=== PATIENT | male | born 1990 ===

== ENCOUNTER 2018-02-13 12:19 | Emergency (ER) | payer OTHER ==
[2018-02-13 12:26] VITALS: BMI 25.2
[2018-02-13 12:27] VITALS: BP 131/83; PULSE 66; RESP 20; TEMP 98; O2SAT 99
--- NOTE | 2018-02-13 12:42 | ED PDOC ---
Upper Extremity Pain/Injury Time Seen by Provider: 02/13/18 12:29 Chief Complaint (Nursing): Finger,Hand,&Wrist Chief Complaint (Provider): Left wrist pain History Per: Patient History/Exam Limitations: no limitations Onset/Duration Of Symptoms: Days (x1) Current Symptoms Are (Timing): Still Present Additional Complaint(s): 27 year old right handed male presents to the emergency department complaining of pain and swelling to left wrist and hand. 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 He did not sustain head injury or LOC as a result of fall. No meds taken for pain relief. Patient denies any numbness or tingling to affected area. PMD: none Past Medical History Reviewed: Historical Data, Nursing Documentation, Vital Signs Vital Signs: Last Vital Signs Temp 98 F 02/13/18 12:26 Pulse 66 02/13/18 12:26 Resp 20 02/13/18 12:26 BP 131/83 02/13/18 12:26 Pulse Ox 99 02/13/18 12:26 - Medical History PMH: No Chronic Diseases - Surgical History Other surgeries: lung surgery - Family History Family History: States: Unknown Family Hx - Living Arrangements Living Arrangements: With Family - Social History Current smoker - smoking cessation education provided: Yes ([employer]) Alcohol: None Drugs: Denies - Home Medications Home Medications: Ambulatory Orders Medication Instructions Recorded Ibuprofen [Motrin Tab] 800 mg PO Q8 PRN #20 tab 02/13/18 - Allergies Allergies/Adverse Reactions: Allergies Allergy/AdvReac Type Severity Reaction Status Date / Time No Known Allergies Allergy Verified 02/13/18 12:25 Review of Systems ROS Statement: Except As Marked, All Systems Reviewed And Found Negative Musculoskeletal: Positive for: Hand Pain (left hand and wrist pain s/p fall) Physical Exam - Reviewed Nursing Documentation Reviewed: Yes Vital Signs Reviewed: Yes - Physical Exam Appears: Positive for: Well, Non-toxic, No Acute Distress Skin: Positive for: Normal Color. Negative for: Rash Eye Exam: Positive for: Normal appearance Extremity: Positive for: Normal ROM (to left hurt and wrist with pain), Tenderness (to ulnar aspect of left hand and overlying distal ulna on wrist), Swelling (to ulnar aspect of left hand and overlying distal ulna on wrist). Negative for: Deformity, Other (Snuffbox tenderness) Neurologic/Psych: Positive for: Alert, Oriented (x3) - ECG O2 Sat by Pulse Oximetry: 99 (RA) Pulse Ox Interpretation: Normal - Other Rad Left hand and wrist x-ray X-Ray: Interpreted by Me, Viewed By Me X-Ray Interpretation: no fx, no dis Medical Decision Making Medical Decision Making: Time: 12:33 Initial Impression: 27 year old male with left wrist and hand pain Initial Plan: --Motrin 600mg --Left Hand X-ray --Left Wrist X-ray Patient aware of x-ray results, all questions answered. Patient given a Velcro wrist splint. Prescription for Motrin provided. Patient was referred to orthopedist tongue presser for follow up. Scribe Attestation: Documented by Maria Teresa Dupont, acting as a scribe for Cookie Christianson PA-C. Provider Scribe Attestation: All medical record entries made by the Scribe were at my direction and personally dictated by me. I have reviewed the chart and agree that the record accurately reflects my personal performance of the history, physical exam, medical decision making, and the department course for this patient. I have also personally directed, reviewed, and agree with the discharge instructions and disposition. Procedures - Splinting Location: left wrist Pre-Made Type: velcro Pre-Proc Neuro Vasc Exam: normal Post-Proc Neuro Vasc Exam: normal Disposition - Clinical Impression Clinical Impression: Wrist sprain - Patient ED Disposition Is Patient to be Admitted: No Counseled Patient/Family Regarding: Studies Performed, Diagnosis, Need For Followup, Rx Given - Disposition Referrals: Bernard Ibarra MD [Staff Provider] - [facility] [Outside] Disposition: Routine/Home Disposition Time: 13:20 Condition: STABLE Additional Instructions: Ice, rest and elevate affected area. Take prescription meds as directed as needed for pain. Follow-up with clinic or orthopedist for any persistent symptoms. Prescriptions: Ibuprofen [Motrin Tab] 800 mg PO Q8 PRN #20 tab PRN Reason: Pain, Moderate (4-7) Instructions: Wrist Sprain (DC) Forms: [employer] ([place]), [facility] ED School/Work Excuse
--- NOTE | 2018-02-13 14:04 | RAD ---
PROCEDURE: Left Wrist Radiographs. HISTORY: trauma COMPARISON: None. FINDINGS: BONES: Bone alignment and mineralization are normal. There is no acute displaced fracture or bone destruction. JOINTS: Normal. No dislocation. SOFT TISSUES: Normal. OTHER FINDINGS: None. IMPRESSION: No acute fracture or dislocation.
--- NOTE | 2018-02-13 14:06 | RAD ---
PROCEDURE: Left Hand Radiographs. HISTORY: Trauma COMPARISON: None. FINDINGS: BONES: Bone alignment and mineralization are normal. There is no acute displaced fracture or bone destruction. JOINTS: Normal. SOFT TISSUES: Normal. OTHER FINDINGS: None. IMPRESSION: No acute fracture or dislocation.
== END 2018-02-13 13:49 | disposition home or self-care (01) ==
LOC: H.ER 12:19
DX: S63.502A Unspecified sprain of left wrist, initial encounter (principal); X50.9XXA Other and unspecified overexertion or strenuous movements or postures, initial encounter; Y99.0 Civilian activity done for income or pay

== ENCOUNTER 2018-06-24 16:44 | Emergency (ER) | payer OTHER ==
[2018-06-24 16:45] VITALS: BMI 25.2
[2018-06-24 17:15] VITALS: BP 115/77; PULSE 79; RESP 16; TEMP 99.1; O2SAT 98
--- NOTE | 2018-06-24 18:26 | ED PDOC ---
Lower Extremity Pain/Injury Time Seen by Provider: 06/24/18 17:26 Chief Complaint (Nursing): Lower Extremity Problem/Injury Chief Complaint (Provider): Lower Extremity Problem/Injury History Per: Patient History/Exam Limitations: no limitations Onset/Duration Of Symptoms: Days (x1) Current Symptoms Are (Timing): Still Present Additional Complaint(s): 27 year old male arrives to ED with a complaint of right knee pain and swelling status post misstep and fall while getting out of a truck this morning. Patient is able to ambulate but with pain. Otherwise, he did not take any pain medication prior to arrival and denies any further medical complaints. PMD: none provided Past Medical History Reviewed: Historical Data, Nursing Documentation, Vital Signs Vital Signs: Last Vital Signs Temp 99.1 F 06/24/18 17:11 Pulse 79 06/24/18 17:11 Resp 16 06/24/18 17:11 BP 115/77 06/24/18 17:11 Pulse Ox 98 06/24/18 17:11 - Medical History PMH: No Chronic Diseases - Family History Family History: States: Unknown Family Hx - Home Medications Home Medications: Ambulatory Orders Medication Instructions Recorded Ibuprofen [Motrin Tab] 800 mg PO Q8 PRN #20 tab 02/13/18 RX: Ibuprofen [Motrin Tab] 600 mg PO Q8 #15 tab 06/24/18 - Allergies Allergies/Adverse Reactions: Allergies Allergy/AdvReac Type Severity Reaction Status Date / Time No Known Allergies Allergy Verified 06/24/18 17:11 Review of Systems ROS Statement: Except As Marked, All Systems Reviewed And Found Negative Musculoskeletal: Positive for: Leg Pain (right knee with swelling) Physical Exam - Reviewed Nursing Documentation Reviewed: Yes Vital Signs Reviewed: Yes - Physical Exam Appears: Positive for: No Acute Distress, Uncomfortable Extremity: Positive for: Tenderness (Tenderness over anterior knee with (+) suprapatellar effusion). Negative for: Other (distal neurological deficiency of right knee; instability on valgus and varus stress test) Neurologic/Psych: Positive for: Alert, Oriented (x3). Negative for: Motor/Sensory Deficits - ECG O2 Sat by Pulse Oximetry: 98 (RA) Pulse Ox Interpretation: Normal Medical Decision Making Medical Decision Making: Time: 1800 Initial Plan: * XR right knee * Motrin 600mg PO Knee immobilized with bentley wrap by [facility]. crutches given. ortho follow up recommended. -------- ScribeAttestation: Documented byMaria C Fisher, acting as a scribe for Narcisa Hsu PA-C. Provider ScribeAttestation: All medical record entries made by the Scribe were at my direction and personally dictated by me. I have reviewed the chart and agree that the record accurately reflects my personal performance of the history, physical exam, medical decision making, and the department course for this patient. I have also personally directed, reviewed, and agree with the discharge instructions and disposition. Disposition - Clinical Impression Clinical Impression: Acute knee pain, Knee effusion, right - Disposition Referrals: Bernard Ibarra MD [Staff Provider] - Disposition Time: 19:30 Condition: IMPROVED Prescriptions: RX: Ibuprofen [Motrin Tab] 600 mg PO Q8 #15 tab Instructions: Knee Pain Forms: [employer] ([place]), [facility] ED School/Work Excuse
--- NOTE | 2018-06-25 11:14 | RAD ---
Date of service: 06/24/2018 PROCEDURE: Right Knee Radiographs. HISTORY: trauma COMPARISON: 04/16/2015 FINDINGS: BONES: Three views of the right knee were performed for right knee pain. There may be some mild irregularity of the posterior medial right tibial plateau on the oblique and lateral image. There is additionally a suprapatellar joint effusion noted. Patella is in normal location. Femoral condyles are intact. Proximal fibula is intact.. JOINTS: There may be some very minimal medial joint space narrowing. JOINT EFFUSION: Positive suprapatellar mild to moderate joint effusion. OTHER FINDINGS: None. IMPRESSION: Joint effusion. Possible subtle irregularity of the posterior medial tibial plateau. Correlation with symptoms in this region is suggested. Fracture cannot fully be excluded. As no preliminary reading has been provided by the emergency room department, this will be placed in the PA review folder.
== END 2018-06-24 19:37 | disposition home or self-care (01) ==
LOC: H.ER 16:44
DX: V58.4XXA Person boarding or alighting a pick-up truck or van injured in noncollision transport accident, initial encounter (principal)